=== PATIENT | male | born 1975 | race Two or more races ===

== ENCOUNTER 2020-06-09 00:18 | Emergency (ER) | payer OTHER ==
[~2020-06-09] VITALS: Ht 180.3 cm; Wt 79.4 kg
[2020-06-09 01:13] LABS: Basophils # (auto) 0.1 10 ^3/uL (0-0.2); Eosinophils # (auto) 0.1 10 ^3/uL (0-0.8); Eosinophils % (auto) 1.5 % (0.0-7.0); Hematocrit 48.3 % (41.0-53.0); Hemoglobin 16.4 g/dL (13.5-17.5); Lymphocytes # (auto) 2.4 10 ^3/uL (0.4-5.4); Mean Corpuscular Hemoglobin 30.7 pg (28.0-32.0); Mean Corpuscular Volume 90.2 fL (80.0-100.0); Monocytes # (auto) 0.5 10 ^3/uL (0-1.3); Monocytes % (auto) 8.1 % (0.0-12.0); Neutrophils # (auto) 2.8 10 ^3/uL (1.6-8.6); Neutrophils % (auto) 48.4 % (37.0-80.0); Nucleated Red Blood Cells % 0.1 %; Platelet Count (auto) 144 10^3/uL (140-450); Red Blood Cells 5.35 10^6/uL (4.5-5.90); Red Cell Distribution Width 13.2 % (11.8-14.3); White Blood Cell 5.7 10^3/uL (4.4-10.8)
[2020-06-09] MEDS ORDERED: SODIUM CHLORIDE 0.9% 1,000 ML IV ONE (01:30)
[2020-06-09 01:31] LABS: INR 0.97 (0.9-1.15); Partial Thromboplastin Time 25.9 sec (23.0-31.2)
[2020-06-09 01:34] LABS: Alanine Aminotransferase 25 U/L (16-61); Albumin 3.7 g/dL (3.4-5.0); Anion Gap 4 (5-15); Aspartate Aminotransferase 17 U/L (15-37); BUN/Creatinine Ratio 16.1; Blood Urea Nitrogen 22 mg/dL (7-18); Calcium 8.9 mg/dL (8.5-10.1); Carbon Dioxide 26 mmol/L (21-32); Chloride 104 mmol/L (98-107); GFR African American 73 mL/min; GFR Non-African American 60 mL/min; Magnesium 1.9 mg/dL (1.6-2.6); Potassium 4.2 mmol/L (3.5-5.1); Sodium 134 mmol/L (136-145)
[2020-06-09 01:37] LABS: Glucose 230 mg/dL (74-106)
[2020-06-09 01:39] LABS: Alkaline Phosphatase 62 U/L (45-117); Bilirubin, Total 0.6 mg/dL (0.2-1.0); Total Protein 8.1 g/dL (6.4-8.2)
[2020-06-09 04:00] VITALS: BP 100/70
== END 2020-06-09 04:05 | disposition home or self-care (01) ==
LOC: ER 00:18
DX: R00.2 Palpitations (principal); E86.0 Dehydration; E11.9 Type 2 diabetes mellitus without complications; I48.91 Unspecified atrial fibrillation; Z94.4 Liver transplant status
CPT/HCPCS: 36415; 71045; 80053; 83735; 83880; 84484; 85025; 85379; 85610; 85730; 93005; 96360; 99285; J7030

== ENCOUNTER 2025-04-25 01:25 | Emergency (ER) | payer OTHER ==
[~2025-04-25] VITALS: Ht 180.3 cm; Wt 72.6 kg
[2025-04-25] MEDS ORDERED: ADENOSINE 6 MG/2 ML INJ IV ONE (01:45)
[2025-04-25 01:46] VITALS: PULSE 180; RESP 18; O2SAT 97
--- NOTE | 2025-04-25 01:46 | ED.PDOC ---
HPI Comments 49 year old male with a Hx of HTN, DM, CHF, Hemochromatosis, and Liver Transplant presents to the ED for the c/c of chest pain and Palpitations. Pt states that his palpitations started 10-15 mins before arrival to the ED after using the restroom, and is noted to currently be in Rapid A-FIB. Pt states that he did have a prior SVT episode 2x years ago. Pt is A&Ox4 and answering questing appropriately at this time. He denies any shortness of breath, nausea, vomiting, diaphoresis or edema. No other associated symptoms, modifiers, recent injuries or sick contacts present at this time. Chief Complaint: Palpitations Time Seen by MD: 01:41 Reviewed Notes: Nurses Notes, Medications, Allergies Allergies: Coded Allergies: NO KNOWN ALLERGIES (Unverified , 06/09/20) Information Source: Patient Mode of Arrival: Ambulatory Severity: Moderate Timing: Minutes Duration: Since onset, Minutes Prehospital treatment: None Location: Chest (L) Radiation: No Radiation Quality: Pressure Onset: At Rest Cardiac Risk Factors: HTN, Diabetes PE Risk Factors: None Modifying Factors: Exertion Associated Signs and Symptoms: Palpitations Past Medical History PAST MEDICAL HISTORY: AFIB, CHF, DM, HTN Past Medical History (Other): SVT Surgical History: Cholecystectomy, Hernia Repair Surgical History (Other): Liver Transplant Family History Family History: Reviewed,noncontributory to illness Social History Smoker: Non-Smoker Alcohol: Denies ETOH Use Drugs: Denies Drug Use Lives In: Home All Other Systems: Reviewed and Negative (comprehensive exam was negavtive accept what is in the HPI) Physical Exam General Appearance: No Apparent Distress HEENT: Other (Pupils and face symmetric. Moist mucous membranes.) Neck: Full Range of Motion, Normal Inspection Respiratory: Lungs Clear, No Accessory Muscle Use, No Respiratory Distress, Normal Breath Sounds Cardiovascular: Irregular, No Edema, No JVD, Tachycardia Breast Exam: Deferred Gastrointestinal: Non Tender, Soft Genitalia: Deferred Pelvic: Deferred Rectal: Deferred Extremities: Normal inspection, Normal range of motion, Non-tender, No pedal edema Neurologic: Alert (Oriented x4), Normal Affect, Normal Mood, Other (Ambulatory) Cerebellar Function: NOT DONE Reflexes: NOT DONE Skin: Dry, Pallor, Warm Lymphatic: NOT DONE EKG EKG #1: Comments SVT versus AFib RVR, rate 185, normal QRS and QTC intervals, normal axis, normal QRS complex, inferior and lateral T-wave inversion with ST depression EKG #2: Comments Sinus rhythm, rate 81, normal intervals, normal axis, normal QRS, nonspecific T change. Was a procedure done? Was a procedure done?: No CP Differential Dx Differential Diagnosis: A-fib, A-Flutter, Angina, Anxiety / Panic Attack, Atrial Dysrhythmia, Electrolyte Disorder, Heart Failure, Hyperthyroidism, VT, PAC's, Pulmonary Embolus, Sinus Tachycardia, Ventricular Dysrhythmia, V-Fib, V- Tach Differential Diagnosis: CHF Differential Diagnosis: Angina, Chest Wall Pain, Esophageal reflux/spasm, Gastritis, Myocardial Infarction, Pericarditis, Pneumonia, Pneumothorax, Pulmonary Embolus X-Ray, Labs, Meds, VS Vital Signs Date Time Temp Pulse Resp B/P (MAP) Pulse Ox O2 Delivery O2 Flow Rate FiO2 04/25/25 05:00 97.4 75 14 128/52 (77) 99 97.4 04/25/25 03:00 97.4 83 19 135/54 (81) 99 97.4 04/25/25 02:52 83 135/89 04/25/25 02:52 83 135/89 04/25/25 02:20 81 04/25/25 02:04 167 118/77 04/25/25 01:52 180 149/98 04/25/25 01:46 97.4 180 18 149/98 (115) 97 97.4 04/25/25 01:46 180 18 97 Room Air* 0 21 04/25/25 01:36 97.7 185 18 141/96 (111) 98 97.7 04/25/25 01:29 185 Lab Test 04/25/25 04:28 04/25/25 02:41 04/25/25 02:25 04/25/25 01:35 Range/Units Troponin I High Sensitivity Pending 15 12 </=54 ng/L Urine Color Colorless Yellow Urine Clarity Clear Clear Urine pH 6.5 5.0-9.0 Urine Specific [place] 1.004 1.001-1.035 Urine Protein 1+ H Negative Urine Ketones Negative Negative Urine Blood 1+ H Negative /uL Urine Nitrite Negative Negative Urine Bilirubin Negative Negative Urine Urobilinogen Normal Negative mg/dL Urine Leukocyte Esterase Negative Negative /uL Urine RBC 2 0 - 3 /hpf Urine Microscopic WBC < 1 0-3 /HPF Urine Squamous Epithelial Cells None seen <5 /hpf Urine Bacteria None seen None Seen /hpf Urine Glucose 1+ H Normal mg/dL White Blood Count 5.8 4.4-10.8 10^3/uL Red Blood Count 4.48 L 4.5-5.90 10^6/uL Hemoglobin 13.8 13.5-17.5 g/dL Hematocrit 41.4 41.0-53.0 % Mean Corpuscular Volume 92.4 80.0-100.0 fL Mean Corpuscular Hemoglobin 30.8 28.0-32.0 pg Mean Corpuscular Hemoglobin Concent 33.4 32.0-36.0 g/dL Red Cell Distribution Width 13.1 11.8-14.3 % Platelet Count 127 L 140-450 10^3/uL Mean Platelet Volume 8.7 6.9-10.8 fL Neutrophils (%) (Auto) 40.9 37.0-80.0 % Lymphocytes (%) (Auto) 46.7 10.0-50.0 % Monocytes (%) (Auto) 9.6 0.0-12.0 % Eosinophils (%) (Auto) 1.8 0.0-7.0 % Basophils (%) (Auto) 1.0 0.0-2.0 % Neutrophils # (Auto) 2.4 1.6-8.6 10 ^3/uL Lymphocytes # (Auto) 2.7 0.4-5.4 10 ^3/uL Monocytes # (Auto) 0.6 0-1.3 10 ^3/uL Eosinophils # (Auto) 0.1 0-0.8 10 ^3/uL Basophils # (Auto) 0.1 0-0.2 10 ^3/uL Nucleated Red Blood Cells 0.1 % Sodium Level 137 136-145 mmol/L Potassium Level 3.8 3.5-5.1 mmol/L Chloride Level 105 98-107 mmol/L Carbon Dioxide Level 23 20-31 mmol/L Anion Gap 9 5-15 Blood Urea Nitrogen 17 9-23 mg/dL Creatinine 1.56 H 0.700-1.30 mg/dL Glomerular Filtration Rate Calc 54 >90 mL/min BUN/Creatinine Ratio 10.9 10.0-20.0 Serum Glucose 174 H 74-106 mg/dL Calcium Level 8.6 L 8.7-10.4 mg/dL B-Type Natriuretic Peptide 48.41 0-100 pg/mL Current Medications Medications (Trade) Dose Ordered Sig/Juarez Route Start Time Stop Time Status Last Admin Metoprolol Tartrate (Lopressor) 5 mg ONCE ONCE IV 04/25/25 01:45 04/25/25 01:46 DC 04/25/25 01:52 Metoprolol Tartrate (Lopressor) 2.5 mg ONCE ONCE IV 04/25/25 02:00 04/25/25 02:01 DC 04/25/25 02:04 Amiodarone HCl 100 ml @ 600 mls/hr ONCE ONCE IV 04/25/25 02:00 04/25/25 02:09 DC 04/25/25 02:08 Aspirin 325 mg ONCE ONCE PO 04/25/25 02:00 04/25/25 02:01 DC 04/25/25 02:08 PROCEDURE(s): CXRP - CHEST PORTABLE REASON: cp ORDER NUMBER(s): [id number], ACCESSION NUMBER(s): [id number] CHEST RADIOGRAPH Indication: cp Technique: Single frontal view of the chest was obtained COMPARISON: CHEST PORTABLE on DOS: 06/09/20 FINDINGS: Lines and Tubes: None Lungs: Mild diffuse increased prominence of the pulmonary vasculature. No evidence of focal consolidation. Pleura: No effusion. No pneumothorax. Cardiomediastinal contours: Unremarkable Bones: Unremarkable IMPRESSION: 1. No acute disease. Mild diffuse increased prominence of the pulmonary vasculature. X-Ray, Labs, Meds, VS Comment 49-year-old male with a history of AFib, SVT, hypertension, diabetes and CHF complaining of chest pain and found to be in a rapid tachyarrhythmia on arrival Initials vitals remarkable for heart rate 180, BP 149/98 Exam remarkable for tachycardia Rhythm strip independently interpreted by me: SVT versus AFib RVR, rate 185 Chest x-ray IMPRESSION: 1. No acute disease. Mild diffuse increased prominence of the pulmonary vasculature. CBC unremarkable, basic metabolic panel remarkable for creatinine 1.56, BNP and 2 serial troponins negative, UA unremarkable Patient treated with the following in the ED: Metoprolol 5 mg IV, 1 L 0.9 normal saline IV with improvement of heart rate to the 160s initially. Patient received a 2nd dose of metoprolol, 2.5 mg IV, then was started on a 150 mg amiodarone bolus. Shortly after the amiodarone bolus was initiated, the patient converted to a sinus rhythm in the 80s. He reported resolution of his chest discomfort at that point. Blood pressure remained stable. On re-evaluation at 5:21 a.m., patient is still in a sinus rhythm and is pain- free with otherwise stable vitals. Case discussed with [facility] , who agreed with me that the patient now appears stable for discharge. He will arrange for the patient to have close follow-up with his primary physician for possible adjustment of his carvedilol dosing. Authorization [id number] Time of 1ST Reevaluation: 02:12 Reevaluation 1ST: Unchanged Time of 2ND Reevaluation: 05:12 Reevaluation 2ND: Improved Patient Education/Counseling: Diagnosis, Treatment, Need For Follow Up Family Education/Counseling: No Family Present SEPSIS Sepsis Screen SEPSIS EXCLUSION NOTE: Sepsis Exclusion Note: Patient presents with SIRS criteria, but the SIRS response is attributed to [tachyarrhythmia ], not a suspected infection. Sepsis bundle is not initiated at this time, due to this reason. Further management will focus on the treatment of the above condition (s). Physician Orders Electrocardigram (04/25/25 01:29) Troponin-I Hs (04/25/25 04:29) Electrocardigram (04/25/25 02:29) Electrocardigram (04/25/25 04:29) Chest Portable (04/25/25 01:34) Heplock Iv (04/25/25 01:34) Extractor And Wringer Operator (04/25/25 01:34) Blood Pressure (04/25/25 01:34) Pulse Oximetry (04/25/25 01:34) Amiodarone 360mg/200ml Premix (Nexterone (04/25/25 02:15) Vital Signs Date Time Temp Pulse Resp B/P (MAP) Pulse Ox O2 Delivery O2 Flow Rate FiO2 04/25/25 05:00 97.4 75 14 128/52 (77) 99 97.4 04/25/25 03:00 97.4 83 19 135/54 (81) 99 97.4 04/25/25 02:52 83 135/89 04/25/25 02:52 83 135/89 04/25/25 02:20 81 04/25/25 02:04 167 118/77 04/25/25 01:52 180 149/98 04/25/25 01:46 97.4 180 18 149/98 (115) 97 97.4 04/25/25 01:46 180 18 97 Room Air* 0 21 04/25/25 01:36 97.7 185 18 141/96 (111) 98 97.7 04/25/25 01:29 185 Laboratory Tests Test 04/25/25 01:35 White Blood Count 5.8 10^3/uL (4.4-10.8) Medications Medications Dose Ordered Sig/Juarez Route Start Time Stop Time Status Last Admin Dose Admin Amiodarone HCl 100 ml @ 600 mls/hr ONCE ONCE IV 04/25/25 02:00 04/25/25 02:09 DC 04/25/25 02:08 Aspirin 325 mg ONCE ONCE PO 04/25/25 02:00 04/25/25 02:01 DC 04/25/25 02:08 Metoprolol Tartrate 2.5 mg ONCE ONCE IV 04/25/25 02:00 04/25/25 02:01 DC 04/25/25 02:04 Metoprolol Tartrate 5 mg ONCE ONCE IV 04/25/25 01:45 04/25/25 01:46 DC 04/25/25 01:52 Departure 1 Departure Time of Disposition: 05:23 Impression: Primary Impression: Narrow complex tachycardia Disposition: HOME / SELF CARE / HOMELESS Condition: Stable Additional Instructions: Your blood tests were essentially unremarkable. Your chest x-ray was unremarkable. Your initial EKG showed a rapid narrow complex rhythm, either SVT or rapid AFib. This has resolved with medications in the ED. [facility] will contact you for close follow-up with your primary physician. Continue current medications as directed for now. Discharged With: Relative Critical Care Note Critical Care Time?: Yes (35 min-critical care time only) Critical care comment: Critical care time including multiple bedside re-evaluations, review of lab and imaging studies, and discussion of the case with the consulting provider. Patient is high risk for hemodynamic decompensation. Stability Stability form required: No Heart Score Heart Score: Heart Score Response (Comments) Value History Slightly Suspicious 0 EKG Repolarization Disturb 1 Age 45-64 1 Risk Factors >3 or Hx ASHD 2 Troponin Normal limit 0 Total 4 I personally scribed for SHAYNE MONTELONGO MD ([facility]) on 04/25/25 at 01:46. Electronically submitted by Thad Blanton ([email or web address]). I personally scribed for SHAYNE MONTELONGO MD ([facility]) on 04/25/25 at 01:48. Electronically submitted by Thad Blanton ([email or web address]). SHAYNE MONTELONGO MD Apr 25, 2025 01:46
[2025-04-25] MEDS: METOPROLOL TARTRATE 1MG/1ML-5ML VIAL IV ONE ×2 (01:52→02:04)
[2025-04-25] MEDS: AMIODARONE BOLUS KIT 100 ML IV ONE (02:08)
[2025-04-25 02:09] LABS: Hematocrit 41.4 % (41.0-53.0); Hemoglobin 13.8 g/dL (13.5-17.5); Mean Corpuscular Hemoglobin 30.8 pg (28.0-32.0); Mean Corpuscular Volume 92.4 fL (80.0-100.0); Nucleated Red Blood Cells % 0.1 %
[2025-04-25 02:10] LABS: Chloride 105 mmol/L (98-107); Potassium 3.8 mmol/L (3.5-5.1); Sodium 137 mmol/L (136-145)
[2025-04-25 02:11] LABS: Anion Gap 9 (5-15); Carbon Dioxide 23 mmol/L (20-31)
[2025-04-25 02:16] LABS: BUN/Creatinine Ratio 10.9 (10.0-20.0); Blood Urea Nitrogen 17 mg/dL (9-23)
[2025-04-25 02:19] LABS: Calcium 8.6 mg/dL (8.7-10.4); Glucose 174 mg/dL (74-106)
[2025-04-25] MEDS: AMIODARONE 360mg/200mL PREMIX 200 ML IV ONE (02:19)
--- NOTE | 2025-04-25 02:26 | DVH ---
CHEST RADIOGRAPH Indication: cp Technique: Single frontal view of the chest was obtained COMPARISON: CHEST PORTABLE on DOS: 06/09/20 FINDINGS: Lines and Tubes: None Lungs: Mild diffuse increased prominence of the pulmonary vasculature. No evidence of focal consolid ation. Pleura: No effusion. No pneumothorax. Cardiomediastinal contours: Unremarkable Bones: Unremarkable IMPRESSION: 1. No acute disease. Mild diffuse increased prominence of the pulmonary vasculature.
[2025-04-25 03:16] LABS: Urine Protein, UAD 1+ (Negative)
--- NOTE | 2025-04-25 06:17 | ECG ---
[facility] Test Date: 2025-04-25 Test Time: 02:20:17 Pat Name: JANEEN FAUST Department: ED Room: Gender: M [employer] Manager: SALINA : 1975 Requested By: SHAYNE CAVANAUGH Order Number: [id number] Reading MD: Measurements Intervals [place] Rate: 81 P: 45 NM: 160 QRS: 43 QRSD: 110 T: 71 QT: 395 QTc: 459 Interpretive Statements Sinus rhythm Please click the below link to view image of tracing.
[2025-04-25 07:59] VITALS: PULSE 79; RESP 12; O2SAT 99
[2025-04-25 09:56] VITALS: BP 131/86; PULSE 88; RESP 21; TEMP 98; O2SAT 98
== END 2025-04-25 10:09 | disposition short-term general hospital (02) ==
LOC: ER 01:25
DX: R00.0 Tachycardia, unspecified (principal); I11.0 Hypertensive heart disease with heart failure; I50.9 Heart failure, unspecified; I48.91 Unspecified atrial fibrillation; E11.9 Type 2 diabetes mellitus without complications; Z90.49 Acquired absence of other specified parts of digestive tract; Z98.890 Other specified postprocedural states; Z94.4 Liver transplant status
CPT/HCPCS: 36415; 71045; 80048; 81001; 83880; 84484; 85025; 93005; 96374; 96375; 99285; J0283